=== PATIENT | female | born 1960 | race Caucasian/White ===

== ENCOUNTER → 2021-09-02 | Outpatient (CLI) | payer OTHER | LOC: KOH-I 08:09 | DX: M13.0 Polyarthritis, unspecified (principal); R03.0 Elevated blood-pressure reading, without diagnosis of hypertension; M25.562 Pain in left knee; M25.561 Pain in right knee; M25.512 Pain in left shoulder; R20.2 Paresthesia of skin; M47.812 Spondylosis without myelopathy or radiculopathy, cervical region | CPT/HCPCS: 72040; 73030 ==

== ENCOUNTER → 2021-10-20 | Outpatient (CLI) | payer OTHER | LOC: KOH-I 08:11 | DX: M25.561 Pain in right knee (principal); M25.562 Pain in left knee; M50.121 Cervical disc disorder at C4-C5 level with radiculopathy; M75.102 Unspecified rotator cuff tear or rupture of left shoulder, not specified as traumatic; R03.0 Elevated blood-pressure reading, without diagnosis of hypertension; M13.0 Polyarthritis, unspecified; M25.512 Pain in left shoulder; R20.2 Paresthesia of skin; Z74.09 Other reduced mobility; G60.9 Hereditary and idiopathic neuropathy, unspecified; M25.511 Pain in right shoulder; M25.78 Osteophyte, vertebrae; R12 Heartburn | CPT/HCPCS: 73562 ==